=== PATIENT | female | born 1990 | race Caucasian/White ===

== ENCOUNTER 2017-10-17 16:56 | Inpatient (IN) | payer OTHER ==
[~2017-10-17] VITALS: Ht 165.1 cm; Wt 56.7 kg
[2017-10-19] MEDS ORDERED: CODE1TAB37 PO (08:34)
[2017-10-20] MEDS ORDERED: CODE1TAB37 PO (08:54)
== END 2017-10-20 12:17 | disposition home or self-care, planned readmission (81) | DRG 777 ==
LOC: ER 16:56 → SEC-K 21:52 → OB/GYN 21:52
PROC: 0UB54ZZ Excision of Right Fallopian Tube, Percutaneous Endoscopic Approach (ICD-10-PCS; principal; 2017-10-18)
PROC: 10T24ZZ Resection of Products of Conception, Ectopic, Percutaneous Endoscopic Approach (ICD-10-PCS; 2017-10-18)
PROC: 10D28ZZ Extraction of Products of Conception, Ectopic, Via Natural or Artificial Opening Endoscopic (ICD-10-PCS; 2017-10-18)
DX: O00.101 Right tubal pregnancy without intrauterine pregnancy (principal)

== ENCOUNTER 2018-02-06 12:38 | Emergency (ER) | payer OTHER ==
[~2018-02-06] VITALS: Ht 165.1 cm; Wt 56.7 kg
[~2018-02-06 12:38] MED LIST: CODE1TAB37 PO
[2018-02-06] MEDS ORDERED: [UNRECOGNIZED DRUG - OTHER] (13:39)
== END 2018-02-06 17:38 | disposition home or self-care (01) ==
LOC: ER 12:38
DX: R10.2 Pelvic and perineal pain (principal)

== ENCOUNTER 2021-03-30 09:25 | Outpatient (CLI) | payer OTHER ==
[~2021-03-30 09:25] MED LIST changes: +[UNRECOGNIZED DRUG - OTHER]
== END 2021-03-30 11:45 | disposition home or self-care (01) ==
LOC: PRENATAL 09:25
PROVIDERS: ATTEND Obstetrics & Gynecology Maternal & Fetal Medicine
DX: Z34.00 Encounter for supervision of normal first pregnancy, unspecified trimester (principal)

== ENCOUNTER 2021-06-14 10:25 | Outpatient (CLI) | payer OTHER | END 2021-06-14 11:27 | disposition home or self-care (01) | LOC: PRENATAL 10:25 | PROVIDERS: ATTEND Obstetrics & Gynecology Maternal & Fetal Medicine | DX: O26.849 Uterine size-date discrepancy, unspecified trimester (principal); O36.8199 Decreased fetal movements, unspecified trimester, other fetus; Z3A.32 32 weeks gestation of pregnancy ==

== ENCOUNTER 2021-07-24 02:19 | Outpatient (CLI) | payer OTHER ==
[~2021-07-24] VITALS: Ht 165.1 cm; Wt 69.4 kg
[2021-07-24] MEDS ORDERED: PRENATAL TABLE1 EAC1 PO (02:55)
== END 2021-07-25 14:53 | disposition home or self-care (01) ==
LOC: OBS/DEL 02:19
PROVIDERS: ATTEND Student in an Organized Health Care Education/Training Program
DX: O36.8130 Decreased fetal movements, third trimester, not applicable or unspecified (principal); Z3A.38 38 weeks gestation of pregnancy

== ENCOUNTER 2021-07-29 07:26 | Inpatient (IN) | payer OTHER ==
[~2021-07-29] VITALS: Ht 165.1 cm; Wt 2.7 kg
[~2021-07-29 07:26] MED LIST changes: +PRENATAL TABLE1 EAC1 PO
[2021-08-01] MEDS ORDERED: IBUPROFEN800 MG PO (09:01)
[2021-08-01] MEDS ORDERED: OXYC1TAB9 PO (09:02)
[2021-08-01] MEDS ORDERED: DOCUSATE SODIU100 MG PO (09:02)
== END 2021-08-01 12:28 | disposition home or self-care (01) | DRG 788 ==
LOC: LDR 07:26 → SURG-SUITE 21:22
PROVIDERS: ADMIT Student in an Organized Health Care Education/Training Program; ATTEND Student in an Organized Health Care Education/Training Program
PROC: 4A1HXCZ Monitoring of Products of Conception, Cardiac Rate, External Approach (ICD-10-PCS; 2021-07-29)
PROC: 3E033VJ Introduction of Other Hormone into Peripheral Vein, Percutaneous Approach (ICD-10-PCS; 2021-07-29)
PROC: 3E0DXGC Introduction of Other Therapeutic Substance into Mouth and Pharynx, External Approach (ICD-10-PCS; 2021-07-29)
PROC: 10D00Z1 Extraction of Products of Conception, Low, Open Approach (ICD-10-PCS; principal; 2021-07-29 22:00)
DX: O61.0 Failed medical induction of labor (principal); O62.1 Secondary uterine inertia; Z3A.38 38 weeks gestation of pregnancy; Z37.0 Single live birth; Z20.822 Contact with and (suspected) exposure to COVID-19

== ENCOUNTER 2022-10-25 09:03 | Outpatient (CLI) | payer OTHER ==
[~2022-10-25 09:03] MED LIST changes: +DOCUSATE SODIU100 MG PO; +IBUPROFEN800 MG PO; +OXYC1TAB9 PO
== END 2022-10-25 12:05 | disposition home or self-care (01) ==
LOC: PRENATAL 09:03
PROVIDERS: ATTEND Obstetrics & Gynecology Maternal & Fetal Medicine
DX: O36.80X0 Pregnancy with inconclusive fetal viability, not applicable or unspecified (principal); O26.859 Spotting complicating pregnancy, unspecified trimester; Z3A.01 Less than 8 weeks gestation of pregnancy

== ENCOUNTER 2022-10-27 08:27 | Day surgery (SDC) | payer OTHER ==
[2022-10-27] MEDS ORDERED: IBU600 MG PO (14:54)
[2022-10-27] MEDS ORDERED: MORGIDOX100 MG PO (14:54)
== END 2022-10-27 17:15 | disposition home or self-care (01) ==
LOC: CIR.AMB 08:27
PROVIDERS: ATTEND Obstetrics & Gynecology
DX: O02.1 Missed abortion (principal); Z20.822 Contact with and (suspected) exposure to COVID-19; O72.2 Delayed and secondary postpartum hemorrhage